=== PATIENT | male | born 1950 | race Two or more races ===

== ENCOUNTER 2017-04-30 08:27 | Outpatient (CLI) | payer OTHER | END 2017-04-30 10:51 | disposition home or self-care (01) | LOC: SONOGRAMA 08:27 | DX: E04.2 Nontoxic multinodular goiter (principal); E03.5 Myxedema coma ==

== ENCOUNTER 2021-05-22 12:31 | Emergency (ER) | payer OTHER ==
[~2021-05-22] VITALS: Ht 188 cm; Wt 102.1 kg
[2021-05-22] MEDS ORDERED: RAMIPRIL10 MG PO (13:33)
[2021-05-22] MEDS ORDERED: SYNTHROID50 MCG PO (13:33)
[2021-05-22] MEDS ORDERED: SIMVASTATIN20 MG PO (13:33)
[2021-05-22] MEDS ORDERED: PANTOPRAZOLE SO40 MG PO (13:34)
[2021-05-22] MEDS ORDERED: GLUCERNA237 M1 (13:34)
== END 2021-05-22 17:14 | disposition home or self-care (01) ==
LOC: ER 12:31
DX: R32 Unspecified urinary incontinence (principal); K57.90 Diverticulosis of intestine, part unspecified, without perforation or abscess without bleeding; N40.0 Benign prostatic hyperplasia without lower urinary tract symptoms; B96.20 Unspecified Escherichia coli [E. coli] as the cause of diseases classified elsewhere

== ENCOUNTER → 2021-09-14 07:36 | Outpatient (CLI) | payer OTHER ==
[~2021-09-14 07:36] MED LIST: GLUCERNA237 M1; PANTOPRAZOLE SO40 MG PO; RAMIPRIL10 MG PO; SIMVASTATIN20 MG PO; SYNTHROID50 MCG PO
== END | disposition home or self-care (01) ==
LOC: NUCLEAR 07:00
PROVIDERS: ATTEND Internal Medicine Hematology & Oncology
DX: C80.0 Disseminated malignant neoplasm, unspecified (principal); C77.2 Secondary and unspecified malignant neoplasm of intra-abdominal lymph nodes
CPT/HCPCS: 78812; A9552

== ENCOUNTER 2021-09-30 13:30 | Outpatient (CLI) | payer OTHER | END 2021-09-30 13:41 | disposition home or self-care (01) | LOC: SONOGRAMA 13:30 | PROVIDERS: ATTEND Internal Medicine Hematology & Oncology | DX: N28.1 Cyst of kidney, acquired (principal); C64.1 Malignant neoplasm of right kidney, except renal pelvis ==

== ENCOUNTER → 2021-10-03 | Outpatient (CLI) | payer OTHER | END | disposition home or self-care (01) | LOC: SONOGRAMA 09:00 | PROVIDERS: ATTEND Pathology Anatomic Pathology & Clinical Pathology | DX: L04.3 Acute lymphadenitis of lower limb (principal); C82.00 Follicular lymphoma grade I, unspecified site; C85.14 Unspecified B-cell lymphoma, lymph nodes of axilla and upper limb ==

== ENCOUNTER → 2021-11-08 | Emergency (ER) | payer OTHER ==
[~2021-11-08] VITALS: Ht 188 cm; Wt 97.5 kg
[~2021-11-08] MED LIST changes: +CEFPODOXIME PR200 MG PO; +TAMSULOSIN HCL0.4 MG PO
== END | disposition home or self-care (01) ==
LOC: ER 13:10
DX: N39.0 Urinary tract infection, site not specified (principal); B99.8 Other infectious disease; B95.2 Enterococcus as the cause of diseases classified elsewhere; B96.89 Other specified bacterial agents as the cause of diseases classified elsewhere

== ENCOUNTER 2022-04-12 07:14 | Outpatient (CLI) | payer OTHER | END 2022-04-12 07:15 | disposition home or self-care (01) | LOC: NUCLEAR 07:14 | PROVIDERS: ATTEND Internal Medicine Hematology & Oncology | DX: C83.10 Mantle cell lymphoma, unspecified site (principal) | CPT/HCPCS: 78816; A9552 ==

== ENCOUNTER 2022-09-08 10:39 | Outpatient (CLI) | payer OTHER | END 2022-09-08 10:45 | disposition home or self-care (01) | LOC: RAD 10:39 | PROVIDERS: ATTEND Internal Medicine | DX: M17.0 Bilateral primary osteoarthritis of knee (principal) ==

== ENCOUNTER 2023-01-08 07:15 | Outpatient (CLI) | payer OTHER | END 2023-01-08 07:21 | disposition home or self-care (01) | LOC: TOM 07:15 | PROVIDERS: ATTEND Internal Medicine | DX: K43.2 Incisional hernia without obstruction or gangrene (principal); K40.91 Unilateral inguinal hernia, without obstruction or gangrene, recurrent ==

== ENCOUNTER 2024-06-11 10:56 | Outpatient (CLI) | payer OTHER | END 2024-06-11 11:05 | disposition home or self-care (01) | LOC: TOM 10:56 | PROVIDERS: ATTEND Internal Medicine | DX: G45.9 Transient cerebral ischemic attack, unspecified (principal); R42 Dizziness and giddiness ==

== ENCOUNTER 2024-09-22 08:33 | Outpatient (CLI) | payer OTHER | END 2024-09-22 08:35 | disposition home or self-care (01) | LOC: SONOGRAMA 08:33 | PROVIDERS: ATTEND Internal Medicine Hematology & Oncology | DX: N40.0 Benign prostatic hyperplasia without lower urinary tract symptoms (principal) ==

== ENCOUNTER 2024-10-13 08:16 | Outpatient (CLI) | payer OTHER | END 2024-10-13 08:17 | disposition home or self-care (01) | LOC: NUCLEAR 08:16 | PROVIDERS: ATTEND Internal Medicine | DX: I70.211 Atherosclerosis of native arteries of extremities with intermittent claudication, right leg (principal); I82.401 Acute embolism and thrombosis of unspecified deep veins of right lower extremity; I87.2 Venous insufficiency (chronic) (peripheral) ==

== ENCOUNTER → 2024-10-14 07:58 | Outpatient (CLI) | payer OTHER | END | disposition home or self-care (01) | LOC: NUCLEAR 07:58 | PROVIDERS: ATTEND Internal Medicine | DX: I73.9 Peripheral vascular disease, unspecified (principal); I87.2 Venous insufficiency (chronic) (peripheral) ==